=== PATIENT | male | born 1955 | race Caucasian/White ===

== ENCOUNTER 2024-01-21 12:35 | Outpatient (CLI) | payer MEDICARE, MEDICAID | END 2024-01-21 23:59 | disposition home or self-care (01) | LOC: MRI02 12:35 | PROVIDERS: ATTEND Family Medicine | DX: M54.12 Radiculopathy, cervical region (principal); M48.03 Spinal stenosis, cervicothoracic region; M47.893 Other spondylosis, cervicothoracic region | CPT/HCPCS: 72141 ==